=== PATIENT | female | born 1955 | race Caucasian/White ===

== ENCOUNTER 2021-07-19 09:48 | Day surgery (SDC) | payer OTHER ==
[~2021-07-19] VITALS: Ht 175.3 cm; Wt 64.5 kg
[~2021-07-19 09:48] MED LIST: C COMPLEX1000 M1 PO; CIDAFLEX TABLE1 EAC1 PO; DHEA 2525 MG PO; FERSU300 PO; MAGCHL64ER; VITAMIN B COMP0.4 MG PO; VITAMIN D5000 UNIT PO
== END 2021-07-19 11:45 | disposition home or self-care (01) ==
LOC: ORSCSDS 09:48
PROVIDERS: Internal Medicine Gastroenterology
PROC: 0DBM8ZX Excision of Descending Colon, Via Natural or Artificial Opening Endoscopic, Diagnostic (ICD-10-PCS; principal; 2021-07-19 11:00)
PROC: 0DBK8ZX Excision of Ascending Colon, Via Natural or Artificial Opening Endoscopic, Diagnostic (ICD-10-PCS; principal; 2021-07-19 11:00)
PROC: 0DBP8ZX Excision of Rectum, Via Natural or Artificial Opening Endoscopic, Diagnostic (ICD-10-PCS; principal; 2021-07-19 11:00)
DX: R19.5 Other fecal abnormalities (principal); D12.2 Benign neoplasm of ascending colon; D12.4 Benign neoplasm of descending colon; D12.8 Benign neoplasm of rectum; K57.30 Diverticulosis of large intestine without perforation or abscess without bleeding; K64.1 Second degree hemorrhoids
CPT/HCPCS: 88305; J2704; J7120

== ENCOUNTER → 2023-08-18 | Outpatient (CLI) | payer OTHER | END | disposition home or self-care (01) | LOC: LAB 14:51 → LAB SHORT 14:51 | DX: R30.0 Dysuria (principal) | CPT/HCPCS: 87086 ==